=== PATIENT | female | born 1975 | race Caucasian/White ===

== ENCOUNTER → 2019-11-10 08:00 | Outpatient (CLI) | payer BC | END | disposition home or self-care (01) | LOC: D.CT 08:00 | PROVIDERS: ATTEND Allergy & Immunology | DX: R43.0 Anosmia (principal); J32.0 Chronic maxillary sinusitis ==

== ENCOUNTER → 2019-11-24 14:26 | Outpatient (CLI) | payer BC | END | disposition home or self-care (01) | LOC: D.LABREF 14:26 | PROVIDERS: ATTEND Otolaryngology | DX: J32.9 Chronic sinusitis, unspecified (principal) ==

== ENCOUNTER → 2019-11-30 11:04 | Outpatient (CLI) | payer BC | END | disposition home or self-care (01) | LOC: D.RAD 11:04 | PROVIDERS: ATTEND Internal Medicine Pulmonary Disease | DX: J45.991 Cough variant asthma (principal) ==

== ENCOUNTER → 2019-12-05 09:40 | Outpatient (CLI) | payer BC | END | disposition home or self-care (01) | LOC: D.RT 09:30 | PROVIDERS: ATTEND Internal Medicine Pulmonary Disease | DX: J45.991 Cough variant asthma (principal) ==

== ENCOUNTER → 2019-12-28 07:33 | Outpatient (CLI) | payer BC | END | disposition home or self-care (01) | LOC: D.MRI 07:33 | PROVIDERS: ATTEND Family Medicine | DX: R20.2 Paresthesia of skin (principal) ==